=== PATIENT | male | born 1995 | race Caucasian/White ===

== ENCOUNTER → 2019-03-10 | Outpatient (CLI) | payer OTHER ==
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
== END | disposition home or self-care (01) ==
LOC: RADMRIMAIN 10:37
PROVIDERS: ATTEND Orthopaedic Surgery
DX: M25.512 Pain in left shoulder (principal)

== ENCOUNTER 2021-05-23 02:24 | Emergency (ER) | payer OTHER ==
[2021-05-23 02:30] VITALS: RESP 18; TEMP 98.1
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
[2021-05-23 03:48] LABS: Appearance,Urine Clear (Clear); Bilirubin,Urine Negative (Negative); Blood,Urine Negative (Negative); Color,Urine Light Yellow; Glucose,Urine (UA) Negative (Negative); Ketones,Urine Negative (Negative); Leukocyte Esterase,Urine Negative (Negative); Nitrite,Urine Negative (Negative); Protein,Urine Negative (Negative); Specific Gravity,Urine 1.002 (1.001-1.035); Urobilinogen,Urine <2.0 mg/dL (<2.0)
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
[2021-05-23] MEDS ORDERED: ONDANSETRON ODT 4 MG TAB PO STA (04:22)
[2021-05-23] MEDS ORDERED: ACETAMINOPHEN TAB 500 MG TAB PO STA (04:22)
[2021-05-23] MEDS ORDERED: IBUPROFEN 800 MG TAB PO STA (04:22)
[2021-05-23 04:57] VITALS: BP 124/78; PULSE 61
== END 2021-05-23 04:56 | disposition home or self-care (01) ==
LOC: EC 02:24
DX: S13.9XXA Sprain of joints and ligaments of unspecified parts of neck, initial encounter (principal); S09.90XA Unspecified injury of head, initial encounter; Z87.891 Personal history of nicotine dependence; V89.2XXA Person injured in unspecified motor-vehicle accident, traffic, initial encounter
CPT/HCPCS: 70450; 71045; 72125; 72170; 81003; 99284